=== PATIENT | female | born 2000 | race Caucasian/White ===

== ENCOUNTER 2022-11-27 08:57 | Emergency (ER) | payer OTHER ==
[2022-11-27] MEDS ORDERED: Tetracaine 0.5% PF 4 ML BOT ONE (09:45)
[2022-11-27] MEDS ORDERED: Fluorescein Opthalmic Strip ONE (09:45)
== END 2022-11-27 10:35 | disposition home or self-care (01) ==
LOC: CSHERS 08:57
DX: H57.11 Ocular pain, right eye (principal)
CPT/HCPCS: 99283